=== PATIENT | male | born 1980 | race Caucasian/White ===

== ENCOUNTER 2023-08-27 08:24 | Emergency (ER) | payer OTHER ==
[2023-08-27 08:33] VITALS: BP 121/75; PULSE 82; RESP 18; TEMP 98.1; BMI 29.0
[2023-08-27] MEDS ORDERED: ACETAMINOPHEN 500 MG TABLET (FP) ONE (10:32)
[2023-08-27] MEDS ORDERED: KETOROLAC TROMETHAMINE 30 MG/1 ML VIAL ONE (10:32)
[2023-08-27] MEDS: KETOROLAC TROMETHAMINE 30 MG/1 ML VIAL IM ONE (10:41)
[2023-08-27] MEDS: ACETAMINOPHEN 500 MG TABLET (FP) PO ONE (10:41)
== END 2023-08-27 13:06 | disposition home or self-care (01) ==
LOC: JERFT 08:24
PROC: 3E0233Z Introduction of Anti-inflammatory into Muscle, Percutaneous Approach (ICD-10-PCS; principal; 2023-08-27)
DX: M25.572 Pain in left ankle and joints of left foot (principal)
CPT/HCPCS: 73630-TC-LT; 99284-25